=== PATIENT | male | born 1945 | race African-American/Black ===

== ENCOUNTER 2017-11-23 17:15 | Inpatient (IN) | payer OTHER, MEDICARE ==
[2017-11-23 17:30] LABS: POC GLUCOSE 170 mg/dL (70-99)
[2017-11-23 17:36] LABS: HEMATOCRIT 45.3 % (39.0-53.0); MEAN CORPUSCULAR HEMOGLOBIN 32 pg (25-35); MEAN CORPUSCULAR HGB CONC 33 g/dL (31-37); MEAN CORPUSCULAR VOLUME 97 fL (79-100); PLATELET COUNT 112 x10^3/uL (140-400); RED BLOOD COUNT 4.69 x10^6/uL (4.30-5.70); RED CELL DISTRIBUTION WIDTH 14.2 % (11.5-14.5); WHITE BLOOD COUNT 5.7 x10^3/uL (4.0-11.0)
[2017-11-23 17:46] LABS: INR 1.1 (0.8-1.1); PARTIAL THROMBOPLASTIN TIME 26 SEC (24-38); PROTHROMBIN TIME PATIENT 13.7 SEC (11.7-14.0)
[2017-11-23 17:49] LABS: ANION GAP 6 (6-14); BLOOD UREA NITROGEN 17 mg/dL (8-26); CALCIUM 8.5 mg/dL (8.5-10.1); CARBON DIOXIDE 29 mmol/L (21-32); CHLORIDE 105 mmol/L (98-107); CREATININE 0.9 mg/dL (0.7-1.3); GFR 83.2; GLUCOSE 189 mg/dL (70-99); SODIUM 140 mmol/L (136-145)
[2017-11-23 18:03] LABS: THYROID STIM HORMONE (TSH) 6.394 uIU/mL (0.358-3.74)
[2017-11-23] MEDS: ASPIRIN ENTERIC COATED 81 MG TABLET.DR. PO (18:15)
[2017-11-23 18:38] LABS: TROPONINI < 0.017 ng/mL (0.000-0.055)
[2017-11-23 18:45] LABS: BILIRUBIN,URINE NEGATIVE (NEG); CLARITY,URINE CLEAR; COLOR,URINE YELLOW; GLUCOSE,URINE NEGATIVE (NEG); NITRITE,URINE NEGATIVE (NEG); PH,URINE 5.5; PROTEIN,URINE 100 mg/dL (NEG-TRACE)
[2017-11-23 18:58] LABS: BACTERIA,URINE 0 /HPF (0-FEW); HYALINE CASTS, URINE OCCASIONAL /HPF; RBC,URINE 0 /HPF (0-2); SQUAMOUS EPITHELIAL CELL,UR OCC /LPF; WBC,URINE OCC /HPF (0-4)
[2017-11-23] MEDS ORDERED: IBUPROFEN 600 MG TABLET. PO (19:15)
[2017-11-23 19:17] LABS: MAGNESIUM 1.7 mg/dL (1.8-2.4)
[2017-11-23] MEDS ORDERED: ONDANSETRON PF 4 MG/2 ML VIAL. IV (19:30)
[2017-11-24 04:28] LABS: ADD MAN DIFF? NO
[2017-11-24 04:33] LABS: BASO % 1 % (0-3); EOS # 0.2 x10^3/uL (0.0-0.7); EOS % 4 % (0-3); HEMATOCRIT 43.7 % (39.0-53.0); HEMOGLOBIN 14.6 g/dL (13.0-17.5); LYMPH # 1.6 x10^3/uL (1.0-4.8); LYMPH % 28 % (24-48); MEAN CORPUSCULAR HEMOGLOBIN 32 pg (25-35); MEAN CORPUSCULAR HGB CONC 34 g/dL (31-37); MEAN CORPUSCULAR VOLUME 97 fL (79-100); MONO # 0.6 x10^3/uL (0.0-1.1); MONO % 11 % (0-9); NEUT # 3.1 x10^3uL (1.8-7.7); NEUT % 57 % (31-73); PLATELET COUNT 101 x10^3/uL (140-400); RED BLOOD COUNT 4.52 x10^6/uL (4.30-5.70); RED CELL DISTRIBUTION WIDTH 14.1 % (11.5-14.5); WHITE BLOOD COUNT 5.5 x10^3/uL (4.0-11.0)
[2017-11-24 04:58] LABS: ALBUMIN 3.2 g/dL (3.4-5.0); ALK PHOS 78 U/L (46-116); ALT (SGPT) 40 U/L (16-63); ANION GAP 7 (6-14); AST (SGOT) 22 U/L (15-37); BLOOD UREA NITROGEN 16 mg/dL (8-26); BUN/CREATININE RATIO 18 (6-20); CALCIUM 9.1 mg/dL (8.5-10.1); CARBON DIOXIDE 29 mmol/L (21-32); CHLORIDE 106 mmol/L (98-107); CREATININE 0.9 mg/dL (0.7-1.3); GFR 100.7; GLUCOSE 98 mg/dL (70-99); POTASSIUM 4.1 mmol/L (3.5-5.1); SODIUM 142 mmol/L (136-145); TOTAL BILIRUBIN 0.4 mg/dL (0.2-1.0); TOTAL PROTEIN 6.4 g/dL (6.4-8.2)
[2017-11-24 05:20] LABS: TROPONINI < 0.017 ng/mL (0.000-0.055)
[2017-11-24] MEDS: FUROSEMIDE 40 MG/4 ML VIAL. IVP (05:45)
[2017-11-24] MEDS: METOPROLOL TARTRATE 5 MG/5 ML VIAL. IVP (05:46)
[2017-11-24] MEDS: MAGNESIUM SULFATE 2GM 50 ML IV (05:54)
[2017-11-24] MEDS ORDERED: LABETALOL 20 MG/4 ML DISP.SYRIN. IVP (08:45)
[2017-11-24 09:02] LABS: CHOLESTEROL 145 mg/dL (0-200); HDLC 46 mg/dL (40-60); LDLC 84 mg/dL (0-100); NON-HDL CHOLESTEROL 99 mg/dL (0-129); TRIGLYCERIDES 74 mg/dL (0-150); VLDLC 15 mg/dL (0-40)
[2017-11-24 09:02] LABS: MAGNESIUM 1.9 mg/dL (1.8-2.4)
[2017-11-24 09:05] LABS: CHOLESTEROL/HDL RATIO 3.2
[2017-11-24] MEDS ORDERED: NON FORMULARY ITEM (Albuterol Sulfate (Proair Hfa Inhaler) 1 PUFF) INH (09:30)
[2017-11-24] MEDS ORDERED: ALBUTEROL SULFATE 2.5 MG/3 ML NEBU. NEB (09:45)
[2017-11-24] MEDS ORDERED: CARVEDILOL 12.5 MG TABLET. PO (10:00)
[2017-11-24] MEDS ORDERED: CONTRAST GIVEN MC (10:15)
[2017-11-24] MEDS: IOHEXOL 300 MG/ML 100ML VIAL. IV (10:29)
[2017-11-24] MEDS ORDERED: PERFLUTREN PROTEIN-A MICROSPHR 0.22 MG/ML 3 ML VIAL. IV ×2 (11:00)
[2017-11-24] MEDS: FAMOTIDINE 20 MG TABLET. PO ×2 (12:01→21:17)
[2017-11-24] MEDS: LISINOPRIL 20 MG TABLET PO ×2 (12:01→16:13)
[2017-11-24] MEDS: ASPIRIN ENTERIC COATED 81 MG TABLET.DR. PO (12:02)
[2017-11-24] MEDS: LEVOTHYROXINE 25 MCG TABLET. PO (12:04)
[2017-11-24 12:59] LABS: BASE EXCESS ABG 1 mmol/L (-3-3); HCO3 ABG 25 mmol/L (21-28); PCO2 ABG 35 mmHg (35-46); PH ABG 7.46 (7.35-7.45); PO2 ABG 77 mmHg (65-108); SAT O2 ABG 95 % (92-99)
[2017-11-24 13:29] LABS: FIO2 ABG 21
[2017-11-24] MEDS: PERFLUTREN PROTEIN-A MICROSPHR 0.22 MG/ML 3 ML VIAL. IV (13:48)
[2017-11-24 15:20] LABS: BARBITURATES NEG (NEG); BENZODIAZEPINES NEG (NEG); CANNABINOIDS NEG (NEG); COCAINE NEG (NEG); METHADONE NEG (NEG); OPIATES NEG (NEG); PHENCYCLIDINE NEG (NEG)
[2017-11-24 15:23] LABS: AMPHETAMINE/METHAMPHETAMINE NEG (NEG); ETHANOL, URINE NEG (NEG)
[2017-11-24] MEDS: SODIUM CHLORIDE 0.65% NASAL SPRAY 45ML BOTTLE. NS (17:49)
[2017-11-24] MEDS: FLUTICASONE 50MCG/NASAL SPRAY 16GM BOTTLE. NS (17:49)
[2017-11-24] MEDS ORDERED: hydrALAZINE 20 MG/ML VIAL. IVP (19:45)
[2017-11-24] MEDS: ATORVASTATIN CALCIUM 40 MG TABLET. PO (21:16)
[2017-11-24] MEDS: METOPROLOL TART IMMED RELEASE 50 MG TABLET. PO (21:18)
[2017-11-24] MEDS: ACETAMINOPHEN 500 MG TABLET PO (23:19)
[2017-11-24] MEDS: diphenhydrAMINE HCL 25 MG CAPSULE PO (23:20)
[2017-11-25] MEDS: LEVOTHYROXINE 25 MCG TABLET. PO (06:19)
[2017-11-25] MEDS: REGADENOSON 0.4 MG/5 ML DISP.SYRIN. IV (09:26)
[2017-11-25] MEDS: FAMOTIDINE 20 MG TABLET. PO ×2 (10:20→21:09)
[2017-11-25] MEDS: METOPROLOL TART IMMED RELEASE 50 MG TABLET. PO ×2 (10:21→21:11)
[2017-11-25] MEDS: ASPIRIN ENTERIC COATED 81 MG TABLET.DR. PO (10:21)
[2017-11-25] MEDS: LISINOPRIL 20 MG TABLET PO (10:21)
[2017-11-25] MEDS: LISINOPRIL 10 MG TABLET PO (17:08)
[2017-11-25] MEDS: ATORVASTATIN CALCIUM 40 MG TABLET. PO (21:09)
[2017-11-25] MEDS: diphenhydrAMINE HCL 25 MG CAPSULE PO (23:00)
[2017-11-26] MEDS: LEVOTHYROXINE 25 MCG TABLET. PO (06:14)
[2017-11-26] MEDS: FAMOTIDINE 20 MG TABLET. PO (09:59)
[2017-11-26] MEDS: ASPIRIN ENTERIC COATED 81 MG TABLET.DR. PO (09:59)
[2017-11-26] MEDS: LISINOPRIL 20 MG TABLET PO (10:00)
[2017-11-26] MEDS: METOPROLOL TART IMMED RELEASE 50 MG TABLET. PO (10:00)
== END 2017-11-26 14:30 | disposition home or self-care (01) | DRG 291 ==
LOC: 2 NORTH 11-24 12:06 → ER 17:15 → 6 SOUTH 21:00
PROVIDERS: Internal Medicine
DX: I11.0 Hypertensive heart disease with heart failure (principal); G93.40 Encephalopathy, unspecified; I47.2 Ventricular tachycardia; I27.20 Pulmonary hypertension, unspecified; E66.01 Morbid (severe) obesity due to excess calories; I45.81 Long QT syndrome; J44.9 Chronic obstructive pulmonary disease, unspecified; I50.31 Acute diastolic (congestive) heart failure; I50.32 Chronic diastolic (congestive) heart failure; I49.3 Ventricular premature depolarization; G47.33 Obstructive sleep apnea (adult) (pediatric); I25.10 Atherosclerotic heart disease of native coronary artery without angina pectoris; E78.5 Hyperlipidemia, unspecified; M19.90 Unspecified osteoarthritis, unspecified site; K21.9 Gastro-esophageal reflux disease without esophagitis; E03.9 Hypothyroidism, unspecified; Z68.37 Body mass index [BMI] 37.0-37.9, adult; Z87.891 Personal history of nicotine dependence; Z82.49 Family history of ischemic heart disease and other diseases of the circulatory system; Z91.19 Patient's noncompliance with other medical treatment and regimen
CPT/HCPCS: 36415; 36600; 70450; 71045; 71275; 78452; 80048; 80053; 80061; 80307; 81001; 82805; 82962; 83735; 84443; 84484; 85025; 85027; 85610; 85730; 93005; 93017; 93880; 94760; 96374; 96375; 96376; 97165-GO; 99285; 99285-25; A9500; C8929; J1940; J2785; J3490; J7060; Q0163; Q9956; Q9967